=== PATIENT | male | born 1995 | race Caucasian/White ===

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

== ENCOUNTER 2018-04-08 22:48 | Emergency (ER) | payer OTHER ==
[2018-04-08] MEDS ORDERED: diphenhydrAMINE HCL 25 MG TABLET PO STA (22:53)
[2018-04-08] MEDS ORDERED: HYDROCORTISONE 1% TP STA (22:56)
[2018-04-08] MEDS ORDERED: TRIAMCINOLONE ACETONID 40MG/ML VIAL IM STA (22:57)
[2018-04-08 22:59] VITALS: BP 118/77
--- NOTE | 2018-04-08 23:01 | ED Physician Documentation ---
Skin Rash - HPI Stated Complaint: RASH Chief Complaint: Skin Rash Additional Information: intro self as COMMUNICATION CLERK. pt presents to the ED via POV with father c/o rash to upper arms and trunk after handling wood 1 week ago. denies other symptoms or complaints pt denies current chest pain, dyspnea, syncope/near syncope, headache, dizziness, visual disturbances, n/v/d, fever/chills, sick contacts, dysuria, trauma. melena or hematochezia, bleeding or easy bruising, change in bowel or bladder function, no recent weight loss/gain, anxiety or depression. ROS Negative unless otherwise specified. Location: facial, trunk, RUE, LUE Quality: itchy - ROS CONST: none - PAST HX Past History: none Other History: none Surgeries/Procedures: No Allergies/Adverse Reactions: Allergies Allergy/AdvReac Type Severity Reaction Status Date / Time No Known Allergies Allergy Verified 11/13/16 01:28 Home Medications: Ambulatory Orders Medication Instructions Recorded NK 11/21/15 - SOCIAL HX Smoking History: less than 1 pack/day Alcohol Use: none Drug Use: none - FAMILY HX Family History: none - VITAL SIGNS Vital Signs: Vital Signs Temp Pulse Resp BP Pulse Ox 112/50 11/13/16 03:23 - REVIEWED ASSESSMENTS Nursing Assessment Reviewed: Yes Vitals Reviewed: Yes ED Results Lab/Radiology - Orders Orders: ED Orders Category Date Time Status Hydrocortisone 1% [Cortisone 1%] Med 04/08/18 22:56 Stat 1 gm TP 1T STA Triamcinolone Acetonid 40Mg/ml [Kenalog] Med 04/08/18 22:57 Stat 40 mg IM NOW STA diphenhydrAMINE HCL [Benadryl] Med 04/08/18 22:53 Stat 50 mg PO NOW STA Skin Rash Physical Exam - EXAM General Appearance: no acute distress, alert Skin: warm,dry, skin rash, erythema, other (pruritic papules on an erythematous base) Location: face (localized inferior to left eye 3 cm circular ), other (BUE) Character: asymmetric, patchy Extremities: non-tender, nml ROM, no edema EENT: eyes nml inspection, lips nml, gums nml, pharynx nml Neck: trachea midline, no swelling. No: lymphadenopathy Respiratory: no resp distress, chest non-tender. No: wheezes, rales, rhonchi CVS: reg. rate & rhythm, heart sounds nml Abdomen: non-tender, no organomegaly, nml bowel sounds, no distention Neuro/Psych: oriented x3, motor nml, sensation nml, mood/affect nml Discharge Clincal Impression: Contact dermatitis Qualifiers: Contact dermatitis type: irritant Contact dermatitis trigger: non-food plants Qualified Code(s): L24.7 - Irritant contact dermatitis due to plants, except food Referrals: Primary Doctor,No [Primary Care Provider] - 2 Days Additional Instructions: Benadryl 50 mg every 8 hours as needed for itching. take for next 24 hours. may make drowsy. may add claritin 10 mg daily during the day. hydrocortisone cream over the counter. apply 4 times a day to affected areas until resolved. seek medical care immediately if difficult to wake or weakness, difficulty breathing, feeling faint or fainting, increased rash, chest pain, shortness of breath, or fever not controlled by tylenol/motrin or any concern. follow up with primary care next week or before if not improving as expected. PLEASE UNDERSTAND THAT THIS IS AN EMERGENCY EVALUATION FOR YOUR COMPLAINT AND BY NATURE IS LIMITED AND NOT A SUBSTITUTE FOR ONGOING MEDICAL CARE. EVEN THOUGH TEST RESULTS AND TREATMENT PLAN WERE EXPLAINED THERE MAY BE A NEED FOR ADDITI ONAL TESTING TO FULLY DETERMINE THE EXTENT OF YOUR ILLNESS/INJURY/OR CONCERN SO YOU SHOULD CONTACT AND OR ESTABLISH WITH A PRIMARY CARE PROVIDER (OR REFERRAL DOCTOR IF APPLICABLE) FOR AN APPOINTMENT SOON POSSIBLE Condition: Good Disposition: 01 HOME, SELF-CARE Decision to Admit: NO Date of Decison to Admit: 04/08/18 Decision Time: 23:01
== END 2018-04-08 23:17 | disposition home or self-care (01) ==
LOC: ED 22:48
DX: L24.7 Irritant contact dermatitis due to plants, except food (principal)
CPT/HCPCS: 96372; 99282; 99284; J3301; Q0163

== ENCOUNTER 2018-05-28 19:45 | Emergency (ER) | payer OTHER ==
--- NOTE | 2018-05-28 19:50 | ED Physician Documentation ---
Upper Respiratory Symptoms - HISTORIAN Historian: patient - HPI Stated Complaint: bodyaches, cough Chief Complaint: Cough/ Upper Respiratory Additional Information: Patient presents to ER with a 24 hour history of cough, fever, and bodyaches. Onset: hours (24) Duration: constant Context: denies: recent foreign travel Severity: moderate Associated Symptoms: fever, chills, hurts to breathe Worsened by Deep Breath: Yes Further Comments: no - ROS CONST/EYES: weakness CVS/RESP: shortness of breath LYMPH: denies: rash GI/: vomiting, nausea NEURO/PSYCH: dizziness MS/SKIN: muscle aches - PAST HX Lung Disease: none PE Risk Factors: none Surgeries/Procedures: none Allergies/Adverse Reactions: Allergies Allergy/AdvReac Type Severity Reaction Status Date / Time No Known Allergies Allergy Verified 05/28/18 21:19 Home Medications: Ambulatory Orders Medication Instructions Recorded Oseltamivir Phosphate [Tamiflu] 75 mg PO BID #5 capsule 05/28/18 - SOCIAL HX Smoking History: cigarettes, greater than 1 pack/day Alcohol Use: none Drug Use: none - FAMILY HX Family History: none - VITAL SIGNS Vital Signs: Vital Signs Temp Pulse Resp BP Pulse Ox 102.0 F H 104 H 20 122/66 98 05/28/18 19:50 05/28/18 19:50 05/28/18 19:50 05/28/18 19:50 05/28/18 19:50 - REVIEWED ASSESSMENTS Nursing Assessment Reviewed: Yes Vitals Reviewed: Yes ED Results Lab/Radiology - Orders Orders: ED Orders Category Date Time Status Place IV Lock 1T Care 05/28/18 20:15 Active BMP [BMP] Routine Lab 05/28/18 20:45 Received CBC/PLATELET/DIFF Routine Lab 05/28/18 20:45 Received 0.9 % Sodium Chloride [Normal Saline] 1,000 ml Med 05/28/18 20:15 Discontinued IV Q1H 0.9 % Sodium Chloride [Normal Saline] 1,000 ml Med 05/28/18 21:28 Active IV Q1H Ketorolac Tromethamine [Toradol] Med 05/28/18 20:15 Discontinued 30 mg IVP NOW ONE Ondansetron HCl/Pf [Zofran] Med 05/28/18 20:15 Discontinued 4 mg IVP NOW ONE Oseltamivir Phosphate [Tamiflu] Med 05/28/18 20:27 Discontinued 75 mg PO NOW ONE methylPREDNISolone SOD SUCC [Solu-MEDROL] Med 05/28/18 20:15 Discontinued 125 mg IVP NOW ONE Upper Respiratory Symptoms - EXAM General Appearance: mild distress EENT: eyes nml inspection, nose nml Neck: supple Respiratory: wheezes (bilaterally) Abdomen: non-tender, nml bowel sounds CVS: reg rate & rhythm, heart sounds normal Skin: color nml, no rash, warm,dry Extremities: non-tender, no edema Neuro/Psych: oriented x3 Discharge Clincal Impression: Influenza due to influenza virus, type B Prescriptions: Oseltamivir Phosphate [Tamiflu] 75 mg PO BID #5 capsule Referrals: Primary Doctor,No [Primary Care Provider] - 2 Days Additional Instructions: 1. Tylenol and/or Ibuprofen as needed for pain/fever 2. Tamiflu every 12 hours x 5 days 3. Avoid contact with other people for next 48 hours 4. Drink plenty of fluids. Avoid alcohol and caffeine 5. Follow up with PCP within 1 week 6. Return to ER for new or worsening symptoms. Condition: Stable Disposition: 01 HOME, SELF-CARE Decision to Admit: NO Date of Decison to Admit: 05/28/18 Decision Time: 22:13
[2018-05-28] MEDS ORDERED: 0.9 % SODIUM CHLORIDE 1,000 ML IV ONE ×2 (20:15→21:28)
[2018-05-28] MEDS ORDERED: ONDANSETRON HCL/PF 4 MG/ 2ML VIAL IVP ONE (20:15)
[2018-05-28] MEDS ORDERED: KETOROLAC TROMETHAMINE 30 MG/1ML VIAL IVP ONE (20:15)
[2018-05-28] MEDS ORDERED: methylPREDNISolone SOD SUCC 125 MG/2 ML VIAL IVP ONE (20:15)
[2018-05-28] MEDS ORDERED: OSELTAMIVIR PHOSPHATE 75 MG CAPSULE PO ONE (20:27)
[2018-05-29 00:18] VITALS: BP 110/64
[2018-05-29 06:15] LABS: MEAN CORPUSCULAR HEMOGLOBIN 30.2 pg (28.0-34.0)
[2018-05-29 06:16] LABS: BASOPHILS % 0.6 (0.0-1.5); EOSINOPHILS % 1.2 % (0.0-6.8); MONOCYTES % 9.5 % (0.0-11.0); NEUTROPHILS # 3.5 # k/uL (1.4-7.7)
[2018-05-29 06:18] LABS: eGFR (Non-African) > 60
== END 2018-05-28 22:50 | disposition home or self-care (01) ==
LOC: ED 19:45
DX: J11.1 Influenza due to unidentified influenza virus with other respiratory manifestations (principal); Z72.0 Tobacco use
CPT/HCPCS: 36415; 80048; 85025; 96374; 96375; 99283; 99284; J1885; J2405; J2930; J7030; S1016